=== PATIENT | female | born 1980 | race Native Hawaiian/Other Pacific Islander ===

== ENCOUNTER → 2017-09-07 | Outpatient (CLI) | payer BC, OTHER ==
[~2017-09-07] MED LIST: PANT40TA2 PO; SUCR1ORA4 PO
[2017-09-07 15:44] LABS: BASOPHILS % (AUTO) 0.4 % (0.0-2.0); EOSINOPHILS # (AUTO) 0.1 /CMM (0.0-0.7); HEMATOCRIT 40 % (33-45); HEMOGLOBIN 13.6 g/dL (11.5-14.8); LYMPHOCYTES # (AUTO) 1.9 /CMM (0.8-4.8); LYMPHOCYTES % (AUTO) 17.2 % (20.0-44.0); MEAN CORPUSCULAR HEMOGLOBIN 29 PG (26.0-33.0); MEAN CORPUSCULAR HGB CONC 34 g/dl (31.0-36.0); MEAN CORPUSCULAR VOLUME 85 fL (82-100); MONOCYTES # (AUTO) 0.7 /CMM (0.1-1.30); MONOCYTES % (AUTO) 6.3 % (2.0-12.0); NEUTROPHILS # (AUTO) 8.2 /CMM (1.8-8.9); NEUTROPHILS % (AUTO) 75.1 % (43.0-81.0); PLATELET COUNT (AUTO) 383 /CMM (150-450); RDW COEFFICIENT OF VARIATION 14.3 (11.5-15.0); WHITE BLOOD COUNT (AUTO) 10.9 K/uL (4.3-11.0)
[2017-09-08 08:09] LABS: RUBELLA ANTIBODIES, IGG 7.86 index (Immune >0.99)
== END | disposition home or self-care (01) ==
LOC: LAB 12:19
PROVIDERS: ATTEND Obstetrics & Gynecology
DX: Z33.1 Pregnant state, incidental (principal); N91.0 Primary amenorrhea; Z20.2 Contact with and (suspected) exposure to infections with a predominantly sexual mode of transmission; Q99.2 Fragile X chromosome; E84.0 Cystic fibrosis with pulmonary manifestations
CPT/HCPCS: 36415; 83021; 84443-TC; 85025-TC; 85660; 86592; 86803; 86850-TC; 86900-TC; 87340

== ENCOUNTER 2017-11-16 08:49 | Outpatient (CLI) | payer BC, OTHER ==
[2017-11-16 09:51] LABS: BASOPHILS % (AUTO) 0.3 % (0.0-2.0); EOSINOPHILS % (AUTO) 1.7 % (0.0-6.0); HEMATOCRIT 40 % (33-45); HEMOGLOBIN 13.5 g/dL (11.5-14.8); LYMPHOCYTES # (AUTO) 1.9 /CMM (0.8-4.8); MEAN CORPUSCULAR HGB CONC 34 g/dl (31.0-36.0); MEAN CORPUSCULAR VOLUME 85 fL (82-100); MONOCYTES # (AUTO) 0.6 /CMM (0.1-1.30); MONOCYTES % (AUTO) 6.2 % (2.0-12.0); NEUTROPHILS # (AUTO) 7.7 /CMM (1.8-8.9); NEUTROPHILS % (AUTO) 73.8 % (43.0-81.0); PLATELET COUNT (AUTO) 403 /CMM (150-450); RDW COEFFICIENT OF VARIATION 13.6 (11.5-15.0); RED BLOOD CELL COUNT(AUTO) 4.73 MIL/uL (4.0-5.2); WHITE BLOOD COUNT (AUTO) 10.4 K/uL (4.3-11.0)
== END 2017-11-16 23:59 | disposition home or self-care (01) ==
LOC: LAB 08:49
PROVIDERS: ATTEND Obstetrics & Gynecology
DX: O09.519 Supervision of elderly primigravida, unspecified trimester (principal); O26.899 Other specified pregnancy related conditions, unspecified trimester; N91.0 Primary amenorrhea; Z3A.00 Weeks of gestation of pregnancy not specified
CPT/HCPCS: 36415; 82947-TC; 85025-TC

== ENCOUNTER 2017-11-23 09:23 | Outpatient (CLI) | payer BC, OTHER | END 2017-11-23 23:59 | disposition home or self-care (01) | LOC: LAB 09:23 | PROVIDERS: ATTEND Obstetrics & Gynecology | DX: O09.513 Supervision of elderly primigravida, third trimester (principal); Z3A.00 Weeks of gestation of pregnancy not specified | CPT/HCPCS: 36415; 82947-TC ==

== ENCOUNTER 2018-03-05 10:59 | Outpatient (CLI) | payer BC ==
[2018-03-05 11:47] LABS: BASOPHILS % (AUTO) 0.6 % (0.0-2.0); EOSINOPHILS % (AUTO) 3.2 % (0.0-6.0); HEMATOCRIT 43 % (33-45); HEMOGLOBIN 14.1 g/dL (11.5-14.8); LYMPHOCYTES # (AUTO) 2.4 /CMM (0.8-4.8); LYMPHOCYTES % (AUTO) 29.8 % (20.0-44.0); MEAN CORPUSCULAR HEMOGLOBIN 28 PG (26.0-33.0); MEAN CORPUSCULAR HGB CONC 33 g/dl (31.0-36.0); MEAN CORPUSCULAR VOLUME 87 fL (82-100); MONOCYTES # (AUTO) 0.6 /CMM (0.1-1.30); MONOCYTES % (AUTO) 6.9 % (2.0-12.0); NEUTROPHILS # (AUTO) 4.8 /CMM (1.8-8.9); NEUTROPHILS % (AUTO) 59.5 % (43.0-81.0); PLATELET COUNT (AUTO) 494 /CMM (150-450); RDW COEFFICIENT OF VARIATION 15.1 (11.5-15.0); RED BLOOD CELL COUNT(AUTO) 4.95 MIL/uL (4.0-5.2); WHITE BLOOD COUNT (AUTO) 8.1 K/uL (4.3-11.0)
[2018-03-05 11:49] LABS: APPEARANCE,URINE SL CLOUDY (CLEAR); BILIRUBIN,URINE NEGATIVE (NEGATIVE); BLOOD, URINE NEGATIVE Ery/uL (NEGATIVE); COLOR,URINE YELLOW (YELLOW); KETONES,URINE NEGATIVE (NEGATIVE); LEUKOCYTE ESTERASE ,URINE NEGATIVE (NEGATIVE); NITRITE, URINE NEGATIVE (NEGATIVE); PH,URINE 6.5 (5.0-8.0); PROTEIN,URINE NEGATIVE (NEGATIVE); UGLUCOSE NEGATIVE (NEGATIVE); UROBILINOGEN,URINE 0.2 EU/dL (0.2)
[2018-03-05 12:04] LABS: INR 0.91 (0.87-1.13)
[2018-03-05 14:51] LABS: CALCIUM, SERUM 9.3 mg/dL (8.5-10.1); CREATININE 0.6 mg/dL (0.6-1.3)
== END 2018-03-05 23:59 | disposition home or self-care (01) ==
LOC: LAB 10:59
PROVIDERS: ATTEND Obstetrics & Gynecology
DX: Z30.2 Encounter for sterilization (principal); N91.0 Primary amenorrhea
CPT/HCPCS: 36415; 80048-TC; 81000-TC; 84702-TC; 85025-TC; 85610-TC; 85730-TC; 86900-TC

== ENCOUNTER 2018-07-08 15:37 | Emergency (ER) | payer BC, OTHER ==
[~2018-07-08] VITALS: Ht 157.5 cm; Wt 66.7 kg
[2018-07-08 15:47] VITALS: BP 135/81
[2018-07-08] MEDS ORDERED: ALBUTEROL FS 2.5 MG/3 ML VIAL.NEB NEB ONE (16:30)
[2018-07-08] MEDS ORDERED: IPRATROPIUM NEB FS 0.5 MG/2.5 ML AMPUL.NEB NEB ONE (16:30)
[2018-07-08 17:06] LABS: APPEARANCE,URINE Clear (CLEAR); BILIRUBIN,URINE Negative (NEGATIVE); BLOOD, URINE Negative Ery/uL (NEGATIVE); COLOR,URINE Yellow (YELLOW); KETONES,URINE Trace (NEGATIVE); LEUKOCYTE ESTERASE ,URINE Small (NEGATIVE); NITRITE, URINE Negative (NEGATIVE); PROTEIN,URINE Trace mg/dl (NEGATIVE); UGLUCOSE Negative (NEGATIVE); UROBILINOGEN,URINE 0.2 EU/dL (0.2)
[2018-07-08] MEDS ORDERED: ALBUTEROL FS 2.5 MG/3 ML VIAL.NEB ONE (17:09)
[2018-07-08] MEDS ORDERED: IPRATROPIUM NEB FS 0.5 MG/2.5 ML AMPUL.NEB ONE (17:10)
[2018-07-08 17:16] LABS: SQUAMOUS EPITHELIAL CELL,UR Many /HPF (None Seen)
[2018-07-08 17:17] LABS: BACTERIA,URINE Moderate /HPF (None Seen)
[2018-07-08 17:18] LABS: RBC,URINE 0-2 /HPF (0-2)
== END 2018-07-08 17:46 | disposition home or self-care (01) ==
LOC: ER 15:42
DX: J84.9 Interstitial pulmonary disease, unspecified (principal); J98.01 Acute bronchospasm; E11.65 Type 2 diabetes mellitus with hyperglycemia; R50.9 Fever, unspecified; Z98.51 Tubal ligation status; Z88.0 Allergy status to penicillin; Z79.899 Other long term (current) drug therapy
CPT/HCPCS: 71045-TC; 81000-TC; 82962-TC; 84703-TC; 87086-TC; 87400; A4606; Z7610

== ENCOUNTER 2018-07-14 22:03 | Emergency (ER) | payer BC, OTHER ==
[~2018-07-14] VITALS: Ht 157.5 cm; Wt 63.5 kg
--- NOTE | 2018-07-14 22:41 | NUR ---
TO ER BED 12 BIB SELF C/C OF ALLERGIC RXN. AA/OX4. "I THINK I AM ALLERGIC TO THE ANTIBIOTICS THAT I WAS PRESCRIBED LAST MONDAY." SPEAKING FULL SENTENCES. NO S/S SOB. AMBULATED TO BED WITH STABLE GAIT. MOVES ALL EXTRMITIES WELL. DENIES ANY COMPLAINTS OF TONGUE ITCHINESS/ NUMBNESS. HIVES/ ITCHINESS NOTED THROUGHOUT BODY. NAD. VSS. STABLE CONDITION. WILL CONTINUE TO MONITOR.
[2018-07-14] MEDS ORDERED: diphenhydrAMINE HCL 50 MG/ML VIAL IM ONE (23:00)
[2018-07-14] MEDS ORDERED: DEXAMETHASONE SOD PHOSPHATE 4 MG/ML VIAL IM ONE (23:00)
[2018-07-14] MEDS ORDERED: FAMOTIDINE (20 MG) 20 MG TABLET PO ONE (23:00)
[2018-07-14] MEDS ORDERED: DEXAMETHASONE SOD PHOSPHATE 10 MG/ML VIAL ONE (23:04)
[2018-07-14] MEDS ORDERED: diphenhydrAMINE HCL 50 MG/ML VIAL ONE (23:04)
[2018-07-14] MEDS ORDERED: FAMOTIDINE (20 MG) 20 MG TABLET ONE ×2 (23:05→23:08)
[2018-07-14 23:36] VITALS: BP 108/77
--- NOTE | 2018-07-14 23:36 | NUR ---
Patient is resting comfortably in bed with eyes closed. Easily aroused. VSS. NAD. STABLE CONDITION.
== END 2018-07-15 00:04 | disposition home or self-care (01) ==
LOC: ER 22:15
DX: T36.0X5A Adverse effect of penicillins, initial encounter (principal); T36.3X5A Adverse effect of macrolides, initial encounter; Z88.0 Allergy status to penicillin; Z88.1 Allergy status to other antibiotic agents; Z88.6 Allergy status to analgesic agent; Y92.89 Other specified places as the place of occurrence of the external cause
CPT/HCPCS: A4606; J1100; J1200; Z7610

== ENCOUNTER 2018-07-16 07:47 | Emergency (ER) | payer BC, OTHER ==
[~2018-07-16] VITALS: Ht 157.5 cm; Wt 63.5 kg
[2018-07-16] MEDS ORDERED: diphenhydrAMINE HCL 50 MG/ML VIAL IV ONE (08:00)
[2018-07-16] MEDS ORDERED: predniSONE 10 MG TABLET PO ONE (08:00)
[2018-07-16] MEDS ORDERED: IV NS 0.9% 1,000 ML BAG IV ONE (08:00)
[2018-07-16] MEDS ORDERED: predniSONE 20 MG TABLET ONE (08:04)
[2018-07-16] MEDS ORDERED: diphenhydrAMINE HCL 50 MG/ML VIAL ONE (08:05)
[2018-07-16 08:12] LABS: BASOPHILS % (AUTO) 0.2 % (0.0-2.0); EOSINOPHILS % (AUTO) 3.8 % (0.0-6.0); HEMATOCRIT 43 % (33-45); HEMOGLOBIN 14.3 g/dL (11.5-14.8); LYMPHOCYTES # (AUTO) 1.6 /CMM (0.8-4.8); LYMPHOCYTES % (AUTO) 8.3 % (20.0-44.0); MEAN CORPUSCULAR HGB CONC 33 g/dl (31.0-36.0); MEAN CORPUSCULAR VOLUME 85 fL (82-100); MONOCYTES # (AUTO) 1.3 /CMM (0.1-1.30); MONOCYTES % (AUTO) 6.8 % (2.0-12.0); NEUTROPHILS # (AUTO) 15.2 /CMM (1.8-8.9); NEUTROPHILS % (AUTO) 80.9 % (43.0-81.0); PLATELET COUNT (AUTO) 623 /CMM (150-450); RED BLOOD CELL COUNT(AUTO) 5.09 MIL/uL (4.0-5.2); WHITE BLOOD COUNT (AUTO) 18.8 K/uL (4.3-11.0)
[2018-07-16 08:21] LABS: CALCIUM, SERUM 9.2 mg/dL (8.5-10.1); CARBON DIOXIDE 23 mmol/L (21-32); CHLORIDE 105 mmol/L (98-107); CREATININE 0.7 mg/dL (0.6-1.3); GLUCOSE 108 mg/dL (74-106); POTASSIUM 3.5 mmol/L (3.5-5.1); SODIUM SERUM 141 mmol/L (136-145); UREA NITROGEN, BLOOD 11 mg/dL (7-18)
--- NOTE | 2018-07-16 08:23 | NUR ---
pt bib self c/o rash x 6 days getting worst - denies SOB was prescribed Augmentin for PNA x 7 days. alert and oriented x 4, verbally responsive and able to make needs known. on room air, breathing evenly and unlabored, denies any pain at this time. hooked on the monitor. kept comfortable, will continue to monitor accordingly.
--- NOTE | 2018-07-16 08:24 | NUR ---
[employer] technical lead senior developer at bedside for x-ray.
[2018-07-16 08:26] LABS: ALANINE AMINOTRANSFERASE 37 U/L (12-78); ALKALINE PHOSPHATASE 95 U/L (46-116); ASPARTATE AMINOTRANSFERASE 16 U/L (15-37); BILIRUBIN,DIRECT 0.1 mg/dL (0.0-0.2); BILIRUBIN,TOTAL 0.5 mg/dL (0.2-1.0); TOTAL PROTEIN, SERUM 8.3 g/dL (6.4-8.2)
[2018-07-16] MEDS ORDERED: CALAMINE 118 ML BOTTLE TP SCH (09:30)
[2018-07-16 09:51] VITALS: BP 124/74
--- NOTE | 2018-07-16 09:53 | NUR ---
Patient discharged to home in stable condition. Written and verbal after care instructions given. Patient verbalizes understanding of instruction.IV removed. Catheter intact and site benign. Pressure and 4x4 applied to site. No bleeding noted.
== END 2018-07-16 09:53 | disposition home or self-care (01) ==
LOC: ER 07:50
DX: T36.0X5A Adverse effect of penicillins, initial encounter (principal); E86.0 Dehydration; Z87.01 Personal history of pneumonia (recurrent); Z88.0 Allergy status to penicillin; Z88.1 Allergy status to other antibiotic agents; Z88.8 Allergy status to other drugs, medicaments and biological substances; Z88.6 Allergy status to analgesic agent; Y92.89 Other specified places as the place of occurrence of the external cause
CPT/HCPCS: 36415; 71045-TC; 80048-TC; 80076-TC; 84484-TC; 85025-TC; A4606; J1200; J7030; Z7610

== ENCOUNTER 2018-07-16 22:51 | Emergency (ER) | END 2018-07-17 04:20 | disposition home or self-care (01) | DX: L50.9 Urticaria, unspecified (principal); Z88.0 Allergy status to penicillin; Z88.1 Allergy status to other antibiotic agents; Z88.6 Allergy status to analgesic agent ==

== ENCOUNTER 2018-10-12 10:00 | Outpatient (CLI) | payer BC, OTHER ==
[2018-10-12 10:57] LABS: BASOPHILS % (AUTO) 0.7 % (0.0-2.0); EOSINOPHILS % (AUTO) 2.2 % (0.0-6.0); HEMATOCRIT 43 % (33-45); HEMOGLOBIN 14.6 g/dL (11.5-14.8); LYMPHOCYTES # (AUTO) 1.9 /CMM (0.8-4.8); LYMPHOCYTES % (AUTO) 28.2 % (20.0-44.0); MEAN CORPUSCULAR HGB CONC 34 g/dl (31.0-36.0); MEAN CORPUSCULAR VOLUME 85 fL (82-100); MONOCYTES # (AUTO) 0.5 /CMM (0.1-1.30); MONOCYTES % (AUTO) 6.7 % (2.0-12.0); NEUTROPHILS # (AUTO) 4.3 /CMM (1.8-8.9); NEUTROPHILS % (AUTO) 62.2 % (43.0-81.0); PLATELET COUNT (AUTO) 421 /CMM (150-450); RED BLOOD CELL COUNT(AUTO) 5.06 MIL/uL (4.0-5.2); WHITE BLOOD COUNT (AUTO) 6.9 K/uL (4.3-11.0)
[2018-10-12 11:23] LABS: ALBUMIN 4.3 g/dL (3.4-5.0); BILIRUBIN,TOTAL 0.7 mg/dL (0.2-1.0); CALCIUM, SERUM 8.8 mg/dL (8.5-10.1); CREATININE 0.8 mg/dL (0.6-1.3); POTASSIUM 3.9 mmol/L (3.5-5.1)
[2018-10-12 11:29] LABS: THYROID STIMULATING HORMONE 0.158 uIU/mL (0.358-3.74); URIC ACID 4.5 mg/dL (2.6-7.2)
[2018-10-12 11:50] LABS: APPEARANCE,URINE CLEAR (CLEAR); BILIRUBIN,URINE NEGATIVE (NEGATIVE); BLOOD, URINE NEGATIVE Ery/uL (NEGATIVE); COLOR,URINE YELLOW (YELLOW); KETONES,URINE NEGATIVE (NEGATIVE); LEUKOCYTE ESTERASE ,URINE NEGATIVE (NEGATIVE); NITRITE, URINE NEGATIVE (NEGATIVE); PH,URINE 5.5 (5.0-8.0); PROTEIN,URINE NEGATIVE (NEGATIVE); UGLUCOSE NEGATIVE (NEGATIVE); UROBILINOGEN,URINE 0.2 EU/dL (0.2)
[2018-10-13 12:09] LABS: *FOLIC ACID 17.4 ng/mL (>3.0)
== END 2018-10-12 23:59 | disposition home or self-care (01) ==
LOC: LAB 10:00
PROVIDERS: ATTEND Legal Medicine
DX: Z00.00 Encounter for general adult medical examination without abnormal findings (principal)
CPT/HCPCS: 36415; 80053-TC; 80061-TC; 81000-TC; 82306; 82728-TC; 83540-TC; 84439-TC; 84443-TC; 84550-TC; 85025-TC

== ENCOUNTER 2020-02-07 08:02 | Outpatient (CLI) | payer BC, OTHER ==
[2020-02-07 09:07] LABS: BASOPHILS # (AUTO) 0.1 /CMM (0.0-0.2); BASOPHILS % (AUTO) 0.6 % (0.0-2.0); EOSINOPHILS % (AUTO) 2.1 % (0.0-6.0); HEMATOCRIT 42 % (33-45); LYMPHOCYTES # (AUTO) 2.4 /CMM (0.8-4.8); MEAN CORPUSCULAR HGB CONC 33 g/dl (31.0-36.0); MEAN CORPUSCULAR VOLUME 86 fL (82-100); MONOCYTES # (AUTO) 0.6 /CMM (0.1-1.30); MONOCYTES % (AUTO) 5.5 % (2.0-12.0); NEUTROPHILS # (AUTO) 7.7 /CMM (1.8-8.9); NEUTROPHILS % (AUTO) 69.8 % (43.0-81.0); PLATELET COUNT (AUTO) 465 /CMM (150-450); RED BLOOD CELL COUNT(AUTO) 4.94 MIL/uL (4.0-5.2); WHITE BLOOD COUNT (AUTO) 11.1 K/uL (4.3-11.0)
[2020-02-07 09:09] LABS: ALBUMIN 4.6 g/dL (3.4-5.0); BILIRUBIN,TOTAL 0.2 mg/dL (0.2-1.0); CALCIUM, SERUM 8.7 mg/dL (8.5-10.1); CREATININE 0.8 mg/dL (0.6-1.3); POTASSIUM 3.2 mmol/L (3.5-5.1); TOTAL PROTEIN, SERUM 8.8 g/dL (6.4-8.2)
[2020-02-07 09:10] LABS: APPEARANCE,URINE CLEAR (CLEAR); BILIRUBIN,URINE NEGATIVE (NEGATIVE); BLOOD, URINE NEGATIVE Ery/uL (NEGATIVE); KETONES,URINE NEGATIVE (NEGATIVE); LEUKOCYTE ESTERASE ,URINE TRACE (NEGATIVE); NITRITE, URINE NEGATIVE (NEGATIVE); PH,URINE 6.5 (5.0-8.0); PROTEIN,URINE NEGATIVE (NEGATIVE); UGLUCOSE NEGATIVE (NEGATIVE); UROBILINOGEN,URINE 0.2 EU/dL (0.2)
[2020-02-07 09:16] LABS: COLOR,URINE STRAW (YELLOW)
[2020-02-07 09:18] LABS: THYROID STIMULATING HORMONE 0.112 uIU/mL (0.358-3.74)
[2020-02-07 09:59] LABS: BACTERIA,URINE Few /HPF (None Seen); RBC,URINE 0-2 /HPF (0-2); SQUAMOUS EPITHELIAL CELL,UR Rare /HPF (None Seen)
[2020-02-08 11:22] LABS: FOLIC ACID 13.7 ng/mL (>3.0); THYROID PEROXIDASE (TPO) AB <9 IU/mL (0-34)
== END 2020-02-07 23:59 | disposition home or self-care (01) ==
LOC: LAB 08:02
PROVIDERS: ATTEND Legal Medicine
DX: Z00.00 Encounter for general adult medical examination without abnormal findings (principal); E11.9 Type 2 diabetes mellitus without complications; I10 Essential (primary) hypertension; K21.9 Gastro-esophageal reflux disease without esophagitis; R10.9 Unspecified abdominal pain; E03.9 Hypothyroidism, unspecified; D64.9 Anemia, unspecified; E55.9 Vitamin D deficiency, unspecified
CPT/HCPCS: 80053-TC; 81000-TC; 82150-TC; 82306; 82785; 83690-TC; 84439-TC; 84443-TC; 85025-TC; 86003; 86376; 87086-TC

== ENCOUNTER 2020-02-18 11:00 | Outpatient (CLI) | payer BC, OTHER | END 2020-02-18 23:59 | disposition home or self-care (01) | LOC: US 11:00 | PROVIDERS: ATTEND Legal Medicine | DX: E04.1 Nontoxic single thyroid nodule (principal); E05.00 Thyrotoxicosis with diffuse goiter without thyrotoxic crisis or storm | CPT/HCPCS: 76536-TC ==

== ENCOUNTER 2020-05-02 02:59 | Inpatient (IN) | payer BC, OTHER ==
[~2020-05-02] VITALS: Ht 157.5 cm; Wt 65.3 kg
--- NOTE | 2020-05-02 03:10 | NUR ---
PT CAME TO THE ER C/O MIDEPIGASTRIC PAIN SINCE 0200 W/ N/V. PT AAOX4, VSS, RESPIRATIONS EVEN AND UNLABORED ON RA W/ NAD NOTED. PT CONNECTED TO THE MONITOR AND POX.
[2020-05-02] MEDS ORDERED: MORPHINE SULFATE INJ 4 MG/ML DISP.SYRIN ONE (03:15)
[2020-05-02] MEDS ORDERED: ONDANSETRON HCL/PF 4 MG/2 ML VIAL ONE (03:15)
--- NOTE | 2020-05-02 03:15 | NUR ---
BLOOD COLLECTED AND SENT TO LAB
[2020-05-02] MEDS ORDERED: IV NS 0.9% 1,000 ML BAG IV ONE (03:30)
[2020-05-02] MEDS ORDERED: ONDANSETRON HCL/PF 4 MG/2 ML VIAL IVP ONE (03:30)
[2020-05-02] MEDS ORDERED: MORPHINE SULFATE INJ 2 MG/ML DISP.SYRIN IV ONE (03:30)
--- NOTE | 2020-05-02 03:37 | NUR ---
PT TAKEN TO RADIOLOGY FOR CT
--- NOTE | 2020-05-02 03:45 | NUR ---
PT BACK FROM RADIOLOGY
[2020-05-02 03:49] LABS: BASOPHILS # (AUTO) 0.2 /CMM (0.0-0.2); BASOPHILS % (AUTO) 1.8 % (0.0-2.0); EOSINOPHILS % (AUTO) 2.6 % (0.0-6.0); HEMATOCRIT 42 % (33-45); HEMOGLOBIN 13.8 g/dL (11.5-14.8); LYMPHOCYTES % (AUTO) 19.7 % (20.0-44.0); MEAN CORPUSCULAR HGB CONC 33 g/dl (31.0-36.0); MEAN CORPUSCULAR VOLUME 84 fL (82-100); MONOCYTES # (AUTO) 0.4 /CMM (0.1-1.30); MONOCYTES % (AUTO) 4.2 % (2.0-12.0); NEUTROPHILS # (AUTO) 7.3 /CMM (1.8-8.9); NEUTROPHILS % (AUTO) 71.7 % (43.0-81.0); PLATELET COUNT (AUTO) 397 /CMM (150-450); RED BLOOD CELL COUNT(AUTO) 4.98 MIL/uL (4.0-5.2); WHITE BLOOD COUNT (AUTO) 10.2 K/uL (4.3-11.0)
[2020-05-02] MEDS ORDERED: HYDROMORPHONE 1 MG/1 ML DISP.SYRIN ONE ×2 (03:49→08:41)
[2020-05-02 03:56] LABS: CALCIUM, SERUM 8.6 mg/dL (8.5-10.1); CARBON DIOXIDE 22 mmol/L (21-32); CHLORIDE 101 mmol/L (98-107); CREATININE 0.8 mg/dL (0.6-1.3); GLUCOSE 144 mg/dL (74-106); SODIUM SERUM 136 mmol/L (136-145); UREA NITROGEN, BLOOD 13 mg/dL (7-18)
[2020-05-02] MEDS ORDERED: HYDROMORPHONE 1 MG/1 ML DISP.SYRIN IV ONE (04:00)
[2020-05-02 04:02] LABS: ALANINE AMINOTRANSFERASE 55 U/L (12-78); ALBUMIN 3.9 g/dL (3.4-5.0); ALKALINE PHOSPHATASE 115 U/L (46-116); ASPARTATE AMINOTRANSFERASE 21 U/L (15-37); BILIRUBIN,DIRECT 0.1 mg/dL (0.0-0.2); BILIRUBIN,TOTAL 0.3 mg/dL (0.2-1.0); LIPASE 137 U/L (73-393)
[2020-05-02] MEDS ORDERED: ONDANSETRON 4 MG TAB.RAPDIS ONE (04:40)
[2020-05-02] MEDS ORDERED: ONDANSETRON 4 MG TAB.RAPDIS SL ONE (05:00)
--- NOTE | 2020-05-02 05:01 | NUR ---
VIOLETA WAYNE TALKING TO RADIOLOGIST REGARDING CT RESULT.
--- NOTE | 2020-05-02 05:10 | NUR ---
COVID SWAB SENT TO LAB
[2020-05-02] MEDS ORDERED: METH10TA80 PO (05:42)
[2020-05-02] MEDS ORDERED: ASCO60LO9 PO (05:43)
[2020-05-02] MEDS ORDERED: ZINC10LO5 PO (05:44)
--- NOTE | 2020-05-02 05:49 | NUR ---
LAB CALLED REGARDING NEGATIVE COVID RESULT.
--- NOTE | 2020-05-02 06:45 | NUR ---
CALLED DR HOLT PER VOICE RECORDING ADMIT PT TO [facility].
[2020-05-02] MEDS ORDERED: LEVOFLOXACIN 750 MG /D5W 150ML PIGGYBACK IV ONE (07:00)
[2020-05-02] MEDS ORDERED: LEVOFLOXACIN 750 MG /D5W 150ML 150 ML IV ONE (07:00)
--- NOTE | 2020-05-02 07:25 | NUR ---
REPORT GIVEN TO NANCY OROSCO FOR WILL[facility]
--- NOTE | 2020-05-02 07:43 | NUR ---
CALLED [facility]
--- NOTE | 2020-05-02 07:56 | NUR ---
pt resting vss pending transfer to floor
--- NOTE | 2020-05-02 08:09 | NUR ---
[facility] PANEL PAGED X2 -AMARI ALVAREZ
[2020-05-02] MEDS ORDERED: diphenhydrAMINE HCL 50 MG/ML VIAL ONE (08:19)
--- NOTE | 2020-05-02 08:26 | NUR ---
pt having rxn from [facility]; dr. jimenez, aware, benadryl 25mg ivp
--- NOTE | 2020-05-02 08:28 | NUR ---
PT BECOME ITCHY POST LEQAQUIN BENADRYL 25 MG IVP GIVEN .
[2020-05-02] MEDS ORDERED: diphenhydrAMINE HCL 50 MG/ML VIAL IV ONE (08:30)
[2020-05-02] MEDS ORDERED: HYDROMORPHONE 1 MG/1 ML DISP.SYRIN IV STA (08:39)
--- NOTE | 2020-05-02 08:46 | NUR ---
PT STATED FEELING LESS ITCHY C/O PAIN GIVEN DILAUDID 1 MG IVP PER MD ORDER VSS TRANSFER TO FLOOR STABLE
[2020-05-02 09:00] VITALS: BP 139/77
--- NOTE | 2020-05-02 09:11 | NUR ---
MS/biomedical manager New admission from ER with diagnosis of abdominal pain. Patient fully admitted, awaiting orders from Dr Hooks. Oriented to new surroundings, call light within reach, bed in low setting. Will continue to monitor and ensure safety.
[2020-05-02 09:16] LABS: APPEARANCE,URINE CLEAR (CLEAR); BILIRUBIN,URINE NEGATIVE (NEGATIVE); BLOOD, URINE NEGATIVE Ery/uL (NEGATIVE); COLOR,URINE YELLOW (YELLOW); KETONES,URINE 15 (NEGATIVE); LEUKOCYTE ESTERASE ,URINE NEGATIVE (NEGATIVE); NITRITE, URINE NEGATIVE (NEGATIVE); PROTEIN,URINE NEGATIVE (NEGATIVE); UGLUCOSE NEGATIVE (NEGATIVE); UROBILINOGEN,URINE 0.2 EU/dL (0.2)
[2020-05-02 09:24] LABS: BACTERIA,URINE None seen /HPF (None Seen); RBC,URINE NONE SEEN /HPF (0-2); SQUAMOUS EPITHELIAL CELL,UR Rare /HPF (None Seen)
[2020-05-02 09:25] LABS: WBC,URINE 0-2 /HPF (0-3)
[2020-05-02 09:33] VITALS: BP 134/77
[2020-05-02] MEDS ORDERED: MORPHINE SULFATE INJ 2 MG/ML DISP.SYRIN IV PRN (12:30)
[2020-05-02] MEDS ORDERED: ZOLPIDEM TARTRATE 5 MG TABLET PO PRN (12:30)
[2020-05-02] MEDS ORDERED: ACETAMINOPHEN 325 MG TABLET PO PRN (12:30)
[2020-05-02] MEDS ORDERED: Z GUARD REMEDY 2 OZ OINT TP PRN (12:30)
[2020-05-02] MEDS: IV D5/0.45 NACL 1,000 ML IV PRN (13:31)
[2020-05-02] MEDS ORDERED: PIPERACILLIN /TAZOBACTAM 3.375 G in IV D5W 50 ML IV ONE (14:00)
--- NOTE | 2020-05-02 14:29 | NUR ---
MS/RN HUSSEINA Patient take to nuclear medicine for HIDA scan, consent form signed and placed in front of chart.
[2020-05-02] MEDS: POTASSIUM CL. PREMIX PERIPHER. 50 ML IV SCH ×4 (14:38→17:31)
[2020-05-02] MEDS: METRONIDAZOLE 500MG/ NS 100ML 500 MG in PREMIX 1 EA IV SCH ×2 (15:42→22:20)
[2020-05-02 16:00] VITALS: BP 123/64
[2020-05-02 16:04] VITALS: BP 123/64
--- NOTE | 2020-05-02 16:43 | NUR ---
NM: HIDA SCAN WAS COMPLETED. TECH:RB
--- NOTE | 2020-05-02 18:48 | NUR ---
MS/RN End note Patient remains in stable condition, all medications administered as ordered. Started with clear liquid diet, tolerating well, no nausea or vomiting. Tylenol 650mg given for headache at 1740. HIDA scan resulted as non visualization of gallbladder, suspicious for an obstruction of the cystic duct. Awaitng surgical consult with Dr Santoyo. All questions and concerns addressed, will endorse to manufacturing supervisor 2nd shift.
[2020-05-02] MEDS ORDERED: PIPERACILLIN /TAZOBACTAM 3.375 G in IV D5W 100 ML IV SCH (20:00)
[2020-05-02 21:25] VITALS: BP 140/77
--- NOTE | 2020-05-02 22:00 | NUR ---
wire harness assembler: received from day rn. pt a/o x4, on ra respirations even and unlabored. pt denies any abdl pain or discomfort at this time. ps 0/10. pt on full liquid diet, tolerating well, no episode of n/v after eating. pt has multiple allergies, stated she had generalized rashes after receiving levaquin this am in er, benadryl inj one time dose administered in er per documentation. this included in allergy list so md can reconsider the order/pharmacist put this order as pending. discussed plan of care to pt, pt agree and understand. awaiting for consult/surgery/.dr rory chamberlain. pt has iv access on left ac g 20 patent and flushing well, infusing with d5 1/2 ns at 75ml/hr. jello and chocolate pudding provided per pt request. toiletries provided. vs taken and recorded at 2115. safety precautions for fall initiated, call light in reach, will continue monitoring pt.
--- NOTE | 2020-05-02 22:57 | NUR ---
rn notes/surgery consult: surgeon dr rory chamberlain currently in the unit. went to see the pt. did h&p, pmhx. md performed assessment. noted pain upon palpation and putting pressure on mid epigastric area and rlq. per md the result of hida scan is abnormal, could be there is a stone blocking the cbd, or the pain medication pt received stop the duct from squeezing that's why pt has no pain since afternoon. per md, given pt's experienced s/s, he recommends laparoscopic cholecystectomy, and a general anesthesia will be used. md discussed risk and benefits of surgery. all questions of pt were answered by md. md recommendation of low fat diet post surgery. pt agree and understand. pt will speak with her partner regarding final decision for undergoing surgery.
--- NOTE | 2020-05-02 23:26 | NUR ---
rn notes/levaquin iv atb: dr riojas currently in the unit, relayed about pt's allergy to levaquin, made aware pt received levaquin tthis am in er and had generalized rashes where she needed to be given a benadryl. informed pt has allergy to multiple antibiotics, per md verbal order to discontinue levaquin, keep pt on flagyl. order read back, verified and carried out.
[2020-05-03] MEDS: IV D5/0.45 NACL 1,000 ML IV PRN ×2 (03:25→21:58)
[2020-05-03] MEDS: METRONIDAZOLE 500MG/ NS 100ML 500 MG in PREMIX 1 EA IV SCH ×3 (05:24→21:05)
--- NOTE | 2020-05-03 06:30 | NUR ---
prn morphine: prn morphine 2mg ivp administered for pt's c/o 7/10 mid epigastric pain radiating to rlq and right flank area, pt prefers morphine. will continue to monitor and reassess pt.
[2020-05-03] MEDS ORDERED: LEVOFLOXACIN 500 MG /D5W 100ML 500 MG in PREMIX 1 EA IV SCH (07:00)
--- NOTE | 2020-05-03 07:05 | NUR ---
End of shift report: no episode of n/v noted. Iv access remains patent and flushing well, infusing with d5 ns at 75ml/hr. iv atb administered as scheduled. Awaiting pts decision regarding surgery on Monday. Vs remains stable, needs attended. Safety precautions for fall remains engaged, call light in reach, will endorse to day rn for enmanuel.
--- NOTE | 2020-05-03 07:30 | NUR ---
MS/RN Opening note Patient received from welder 2nd shift. A/O X4, vital signs stable, no fevers noted. Pain scale currently 5/10, pain medication administered by previous shift. No nausea or vomiting at this time. Aware of current plan for surgery tomorrow with Dr Santoyo for laparoscopic cholecystectomy and the need to be NPO from midnight. IV fluids infusing at 75ml/hr via left AC 22G , no signs of infiltration seen. All questions and concerns addressed, call light within reach, will continue to monitor and ensure safety.
[2020-05-03 08:00] VITALS: BP 145/84
[2020-05-03 08:18] LABS: BASOPHILS % (AUTO) 0.4 % (0.0-2.0); EOSINOPHILS % (AUTO) 1.1 % (0.0-6.0); HEMATOCRIT 42 % (33-45); HEMOGLOBIN 13.8 g/dL (11.5-14.8); LYMPHOCYTES # (AUTO) 2.1 /CMM (0.8-4.8); LYMPHOCYTES % (AUTO) 19.5 % (20.0-44.0); MEAN CORPUSCULAR HGB CONC 33 g/dl (31.0-36.0); MEAN CORPUSCULAR VOLUME 85 fL (82-100); MONOCYTES # (AUTO) 0.9 /CMM (0.1-1.30); MONOCYTES % (AUTO) 8.3 % (2.0-12.0); NEUTROPHILS # (AUTO) 7.5 /CMM (1.8-8.9); NEUTROPHILS % (AUTO) 70.7 % (43.0-81.0); PLATELET COUNT (AUTO) 377 /CMM (150-450); RED BLOOD CELL COUNT(AUTO) 4.92 MIL/uL (4.0-5.2); WHITE BLOOD COUNT (AUTO) 10.6 K/uL (4.3-11.0)
[2020-05-03] MEDS: PANTOPRAZOLE 40 MG TABLET.DR PO SCH (08:23)
[2020-05-03] MEDS: METHIMAZOLE (5MG) 5 MG TABLET PO SCH (08:23)
--- NOTE | 2020-05-03 09:25 | NUR ---
MS/RN Levaquin Levaquin discontinued as patient had previous reaction when administered in emergency room.
[2020-05-03 09:41] LABS: ALBUMIN 3.6 g/dL (3.4-5.0); BILIRUBIN,TOTAL 0.6 mg/dL (0.2-1.0); CALCIUM, SERUM 8.6 mg/dL (8.5-10.1); CREATININE 0.6 mg/dL (0.6-1.3); PHOSPHORUS 3.1 mg/dL (2.5-4.9); POTASSIUM 3.4 mmol/L (3.5-5.1); TOTAL PROTEIN, SERUM 7.6 g/dL (6.4-8.2)
[2020-05-03] MEDS: HYDROMORPHONE 1 MG/1 ML DISP.SYRIN IV PRN ×4 (10:17→22:54)
--- NOTE | 2020-05-03 10:24 | NUR ---
MS/RN PAIN PATIENT COMPLAINING OF PAIN IN LOWER ABDOMEN, 01/30. DR. VERA CALLED FOR NEW ORDERS CURRENT ORDER OF MORPHINE IS NOT WORKING. DILAUDID 0.5 MG Q3HRS NEEDED ORDERED, FIRST DOSE ADMINISTERED NOW. WILL MONITOR FOR EFFECTIVENESS.
[2020-05-03] MEDS: ONDANSETRON HCL/PF 4 MG/2 ML VIAL IVP PRN ×2 (11:18→21:05)
[2020-05-03 16:00] VITALS: BP 132/71
[2020-05-03] MEDS: METOCLOPRAMIDE HCL 10 MG/2 ML VIAL IV PRN (16:08)
--- NOTE | 2020-05-03 18:29 | NUR ---
MS/RN CLOSING NOTE PATIENT IN STABLE CONDITION. VS WITHIN NORMAL RANGE FOR PATIENT. REGLAN AND DILUADID APPEARS TO BE WORKING FOR SYMPTOM MANAGEMENT. AWAITING ORDERS FROM DR. VELAZQUEZ FOR CONSENT. WILL ENDORSE TO LODGE OFFICER.
--- NOTE | 2020-05-03 19:10 | NUR ---
rn disease management: received report from day rn. a/o x4, on ra, pt c/o 7-03/02 mid epig pain radiating to rlq and right flank area. pt stated she wasnt able to eat much today because she feels nauseated. iv access patent and flushign well, connected back to d5 1/2 ns at 75ml/hr. pt had shower today. discussed plan of care. npo p mn for lap magda in am. awaiting orders. safety precautions for fall initiated, call light in reach, will continue monitoring pt.
[2020-05-03 19:36] VITALS: BP 140/79
--- NOTE | 2020-05-03 19:52 | NUR ---
PRN DILAUDID: PT C/O 03/02 MID EPIGASTRIC PAIN RADIATING TO RLQ AND RIGHT FLANK AREA, REQUESTING FOR DILAUDID. PRN DILAUDID 0.5 MG IVP ADMINISTERED TO PT AT THIS TIME.
[2020-05-03 20:00] VITALS: BP 140/79
--- NOTE | 2020-05-03 21:06 | NUR ---
PRN ZOFRAN: PT C/O NAUSEA, PRN ZOFRAN 4MG IVP ADMINISTERED TO PT AT THIS TIME. WILL CONTINUE TO MONITOR AND REASSESS PT.
--- NOTE | 2020-05-03 23:00 | NUR ---
prn dilaudid: pt c/o 04/02 excruciating pain pt is moaning restless because of pain, prn dilaudid 0.5 mg ivp administered to pt at this time.
[2020-05-04] MEDS: METOCLOPRAMIDE HCL 10 MG/2 ML VIAL IV PRN (00:46)
--- NOTE | 2020-05-04 00:50 | NUR ---
prn reglan: pt vomited 250ml of liquids, prn reglan 5mg administered at this time. also pt still c/o pain stated its 05/02 pt restless in bed, guarding, moaning. will notify
[2020-05-04 01:15] VITALS: BP 133/71
[2020-05-04] MEDS ORDERED: KETOROLAC TROMETHAMINE INJ 30 MG/ML VIAL IM STA (01:24)
--- NOTE | 2020-05-04 01:27 | NUR ---
rn notes/verification of allergy to ibuprofen: paged dr riojas covering md for dr cameron, informed pt still in so much pain despite being on iv dilaudid q3hrs, and still vomiting despite being on zofran and reglan. per [facility] hospitalist, stated "i am a medical doctor, discuss the issue with [facility] surgeon, seems abnormal with cholecystitis". contacted dr nu curry, spoked with md, relayed situation, per md telephone order received to give toradol 30 mg ivp x 1 dose now, then give toradol 15mg ivp q6hrs prn for pain, add cmp, amylase and lipase to am labs, keep pt on npo. as rn placing the order for toradol, it flagged about the allergy for ibuprofen. spoked with phramacist litigation associate tsering , stated toradol are part of same nsaid family. spoked with pt, to verify allergy with ibuprofen. accdg to pt, she is not really allergic to ibuprofen. however she added the ibuprofen as part of her allergy because sometime before she's been taking ibuprofen and when they check her lab works, her amylase and lipase were skyrocket, and she believed its because of [facility] ibuprofen shes been taking. asked the pt if she ever received toradol [facility], and pt claim,ed yes, and nothing or no reaction happened to her. relayed all this to pharmacy litigation associate, and accdg to pharmacy erin and toshia, fatmata go ahead and override the order as pt isnt really allergic to ibuprofen. tube turnerrachael patton aware Addendum: 05/04/20 at 0139 by PRAVEEN COX RN correction of entry: pharmacist name is erin and the other one is inocencio
[2020-05-04] MEDS ORDERED: KETOROLAC TROMETHAMINE INJ 30 MG/ML VIAL IV STA (01:36)
--- NOTE | 2020-05-04 01:41 | NUR ---
rn notes/toradol: one time dose of toradol 30 mg ivp administered for c/o 10/10 rlq mid epig pain and right flank pain
[2020-05-04 05:02] LABS: BASOPHILS # (AUTO) 0.1 /CMM (0.0-0.2); BASOPHILS % (AUTO) 0.4 % (0.0-2.0); EOSINOPHILS % (AUTO) 0.1 % (0.0-6.0); HEMATOCRIT 40 % (33-45); HEMOGLOBIN 13.6 g/dL (11.5-14.8); LYMPHOCYTES # (AUTO) 1.7 /CMM (0.8-4.8); LYMPHOCYTES % (AUTO) 12.5 % (20.0-44.0); MEAN CORPUSCULAR HGB CONC 34 g/dl (31.0-36.0); MEAN CORPUSCULAR VOLUME 84 fL (82-100); MONOCYTES # (AUTO) 0.9 /CMM (0.1-1.30); MONOCYTES % (AUTO) 6.5 % (2.0-12.0); NEUTROPHILS # (AUTO) 10.7 /CMM (1.8-8.9); NEUTROPHILS % (AUTO) 80.5 % (43.0-81.0); PLATELET COUNT (AUTO) 394 /CMM (150-450); WHITE BLOOD COUNT (AUTO) 13.2 K/uL (4.3-11.0)
[2020-05-04] MEDS: METRONIDAZOLE 500MG/ NS 100ML 500 MG in PREMIX 1 EA IV SCH ×2 (05:17→14:58)
--- NOTE | 2020-05-04 05:28 | NUR ---
rn notes: pt stated her pain improved so much,now 0/10 after receiving toradol inj. am labs drawn, ekg done. pt requested to sleep for now, will have shower after breakfast, and will sign consent after breakfast.
[2020-05-04 05:35] LABS: ALBUMIN 3.5 g/dL (3.4-5.0); BILIRUBIN,DIRECT 0.2 mg/dL (0.0-0.2); BILIRUBIN,TOTAL 0.6 mg/dL (0.2-1.0); CALCIUM, SERUM 8.6 mg/dL (8.5-10.1); CREATININE 0.6 mg/dL (0.6-1.3); MAGNESIUM 2.2 mg/dL (1.8-2.4); PHOSPHORUS 3.6 mg/dL (2.5-4.9); POTASSIUM 3.7 mmol/L (3.5-5.1); TOTAL PROTEIN, SERUM 7.7 g/dL (6.4-8.2)
--- NOTE | 2020-05-04 06:19 | NUR ---
rn notes: received call from soc, from lab, stated pt has positive antibody (type and screen) and they need to run more test to determine what type of antibody, he claimed this will take later this afternoon for result to come back. informed that this order is only for pre-op protocol, but there is no order for transfusion as of this moment. per soc to just inform md or surgeon. morning news anchor made aware
--- NOTE | 2020-05-04 06:47 | NUR ---
End of shift report: Pt pain improved after toradol ivp. No adverse reaction noted after administering the medication. Pt a/o x4, on ra. Npo, for surgery today. However, supervisor cutting and sewing room were asked multiple times about schedule of surgery, per rn sup, nothing on the list for dr chamberlain, however theres only few cases today so they always add on surgery anytime. Pre-op am labs ordered per protocol. Awaiting for md to place the exact/specific order for the name of procedure to be done (if its just lap magda, or lap magda possible open?etc.,). Iv access remains patent and flushing well, infusing with d5 ns at 75ml/hr. safety precautions for fall remains engaged, call light in reach, will endorse to day rn for enmanuel.
[2020-05-04] MEDS: PANTOPRAZOLE 40 MG TABLET.DR PO SCH (07:42)
[2020-05-04] MEDS: KETOROLAC TROMETHAMINE INJ 30 MG/ML VIAL IV PRN (07:43)
[2020-05-04] MEDS: ONDANSETRON HCL/PF 4 MG/2 ML VIAL IVP PRN ×2 (07:50→18:09)
--- NOTE | 2020-05-04 07:50 | NUR ---
RN NOTES ADMINISTERED TORADOL 15 MG/ML IV PUSH FOR RIGHT FLANK PAIN 10/10 PER PAIN SCALE, AND ZOFRAN 4 MG/ML IV PUSH FOR NAUSEA, ALSO ADMINISTERED SCHEDULED MEDICATION. V/S TAKEN BP- 153/83, P-80.
[2020-05-04 08:00] VITALS: BP_SYST 153; BP_DIAS 83; BP_DIAS 86
[2020-05-04] MEDS: METHIMAZOLE (5MG) 5 MG TABLET PO SCH (09:00)
--- NOTE | 2020-05-04 09:13 | NUR ---
rn notes patient npo per surgeon Natanael scheduled surgery 1130 laparoscopic cholecystectomy possible open, patient stable medication were administered for pain, and nausea effective, continued monitoring.
--- NOTE | 2020-05-04 11:40 | NUR ---
RN NOTES PATIENT PAN DUMPER FOR SURGERY AT THIS TIME, STABLE, REFUSED PAIN, V/S WNL.
[2020-05-04] MEDS ORDERED: MIDAZOLAM HCL 2 MG/2ML VIAL ONE (12:07)
[2020-05-04] MEDS ORDERED: FENTANYL PF 250MCG/5ML AMPUL ONE (12:08)
[2020-05-04] MEDS ORDERED: ROCURONIUM BROMIDE 50 MG/5 ML ONE (12:08)
[2020-05-04] MEDS ORDERED: FAMOTIDINE/PF INJ 20 MG/2 ML VIAL IV ONE (12:08)
[2020-05-04] MEDS ORDERED: DEXAMETHASONE SOD PHOSPHATE 4 MG/ML VIAL ONE (12:09)
[2020-05-04] MEDS ORDERED: BUPIVACAINE MPF 0.5% W/EPI INJ 30 ML VIAL ONE (12:15)
[2020-05-04] MEDS ORDERED: LIDOCAINE HCL/MPF 1% 30 ML VIAL IJ ONE (12:15)
[2020-05-04] MEDS ORDERED: CLINDAMYCIN 900 MG/6 ML VIAL ONE (12:42)
[2020-05-04] MEDS: CLINDAMYCIN 600 MG in IV D5W 50 ML IV SCH ×2 (13:00→21:06)
[2020-05-04 14:40] VITALS: BP 129/78
--- NOTE | 2020-05-04 14:40 | NUR ---
RN NOTES PATIENT BACK FROM SURGERY AT THIS TIME, AWAKE, ON O2-2LNC, REFUSED PAIN, DRESSING INTACT, ON TRESSA. V/S TAKEN BP 129/78, P-104, R-18, T-97.8, O2-2LNC. PATIENT REFUSED PAIN AT THIS TIME. NO ACUTE RESPIRATORY DISTRESS. MD ORDER TAKEN AND CARRIED OUT. WILL CONTINUED MONITORING.
[2020-05-04 16:00] VITALS: BP 120/66
[2020-05-04] MEDS: IV D5/0.45 NACL 1,000 ML IV PRN (18:00)
[2020-05-04] MEDS: HYDROMORPHONE 1 MG/1 ML DISP.SYRIN IV PRN (18:10)
--- NOTE | 2020-05-04 18:11 | NUR ---
RN NOTES ADMINISTERED DILAUDID 0.5 MG/ML IV PUSH, AND ZOFRAN 4 MG/ML IV PUSH FOR NAUSEA. V/S TAKEN BP 120/66, P-110, R-18. TRESSA DRAINAGE INTACT, SMALL BLEEDING ON UMBICAL AREA. APPLIED ICE PACK NEXT TO THE BED, INFUSING D51/2 NS AT 75 ML/HR ON RIGHT UA INTACT. CALL LIGHT WITHIN TO REACH. CONTINUED MONITORING. ENDORSED ONCOMING NURSE FOLLOW PLAN OF CARE.
[2020-05-04 20:00] VITALS: BP 120/65
--- NOTE | 2020-05-04 20:25 | NUR ---
MS/TELE/RN DURING INITIAL ASSESSMENT, PATIENT WAS ON BED AWAKE, ALERT, ORIENTED, WITH TOLERABLE PAIN LEVEL OF 3/10, NO DISTRESS NOTED, CALL LIGHT IN REACH. WILL MONITOR.
[2020-05-05] MEDS: CLINDAMYCIN 600 MG in IV D5W 50 ML IV SCH ×2 (04:46→14:41)
--- NOTE | 2020-05-05 06:39 | NUR ---
MS/TELE/RN PATIENT IS AWAKE AT THIS TIME, COMFORTABLE, NO DISTRESS NOTED, CALL LIGHT IN REACH, TRESSA DRAIN OUTPUT = 30 MLS SEROUS SANGUINEOUS IN COLOR. ALL NEEDS ATTENDED AT THIS TIME, WILL CONTINUE TO MONITOR.
[2020-05-05 07:20] LABS: BASOPHILS % (AUTO) 0.4 % (0.0-2.0); EOSINOPHILS % (AUTO) 0.3 % (0.0-6.0); HEMATOCRIT 36 % (33-45); HEMOGLOBIN 11.8 g/dL (11.5-14.8); LYMPHOCYTES # (AUTO) 1.4 /CMM (0.8-4.8); LYMPHOCYTES % (AUTO) 12.2 % (20.0-44.0); MEAN CORPUSCULAR HGB CONC 33 g/dl (31.0-36.0); MEAN CORPUSCULAR VOLUME 85 fL (82-100); MONOCYTES # (AUTO) 1.1 /CMM (0.1-1.30); MONOCYTES % (AUTO) 9.7 % (2.0-12.0); NEUTROPHILS % (AUTO) 77.4 % (43.0-81.0); PLATELET COUNT (AUTO) 353 /CMM (150-450); RED BLOOD CELL COUNT(AUTO) 4.26 MIL/uL (4.0-5.2); WHITE BLOOD COUNT (AUTO) 11.7 K/uL (4.3-11.0)
[2020-05-05] MEDS: PANTOPRAZOLE 40 MG TABLET.DR PO SCH (07:38)
[2020-05-05 07:41] LABS: ALBUMIN 2.9 g/dL (3.4-5.0); BILIRUBIN,TOTAL 0.4 mg/dL (0.2-1.0); CREATININE 0.6 mg/dL (0.6-1.3); POTASSIUM 3.4 mmol/L (3.5-5.1); TOTAL PROTEIN, SERUM 6.7 g/dL (6.4-8.2)
[2020-05-05] MEDS: KETOROLAC TROMETHAMINE INJ 30 MG/ML VIAL IV PRN ×2 (07:46→17:52)
[2020-05-05 08:13] VITALS: BP 117/70
[2020-05-05] MEDS: METHIMAZOLE (5MG) 5 MG TABLET PO SCH (08:46)
[2020-05-05] MEDS: IV D5/0.45 NACL 1,000 ML IV PRN (09:09)
[2020-05-05] MEDS ORDERED: POTASSIUM CHLORIDE 20 MEQ POWDER PACKET PO SCH (10:00)
[2020-05-05 16:07] VITALS: BP 108/71
--- NOTE | 2020-05-05 17:54 | NUR ---
RN NOTE THE PATIENT IS ALERT AND ORIENTED X4. PROVIDED DISCHARGE EDUCATION AND THE PATIENT VERBALIZED UNDERSTANDING. THE PATIENT GOT PICKED UP BY HIS . THE PATIENT LEFT THE HOSPITAL IN STABLE CONDITION.
== END 2020-05-05 17:30 | disposition home or self-care (01) | DRG 419 ==
LOC: ER 03:02 → MED 06:55
PROVIDERS: ADMIT Nurse Practitioner Acute Care; ATTEND Legal Medicine
PROC: 0FT44ZZ Resection of Gallbladder, Percutaneous Endoscopic Approach (ICD-10-PCS; principal; 2020-05-04)
PROC: 0FB04ZX Excision of Liver, Percutaneous Endoscopic Approach, Diagnostic (ICD-10-PCS; 2020-05-04)
DX: K80.00 Calculus of gallbladder with acute cholecystitis without obstruction (principal); K29.70 Gastritis, unspecified, without bleeding; E87.6 Hypokalemia; E05.90 Thyrotoxicosis, unspecified without thyrotoxic crisis or storm; D72.829 Elevated white blood cell count, unspecified; E66.9 Obesity, unspecified; Z88.0 Allergy status to penicillin; R73.9 Hyperglycemia, unspecified
CPT/HCPCS: 36415; 71045-TC; 76705-TC; 78226; 80048-TC; 80053-TC; 80061-TC; 80076-TC; 81000-TC; 82150-TC; 83690-TC; 83735-TC; 84100-TC; 84484-TC; 84703-TC; 85025-TC; 85610-TC; 85730-TC; 86850-TC; 87081-TC; A4216; A6403; A9537; C9803-CS; G0378; J1100; J1170; J1200; J1885; J1956; J2250; J2270; J2405; J2543; J2704; J2765; J3010; J3480; J3490; J7030; J7060; Q0162

== ENCOUNTER 2020-07-22 08:21 | Outpatient (CLI) | payer BC, OTHER ==
[~2020-07-22 08:21] MED LIST changes: +ASCO60LO9 PO; +METH10TA80 PO; +ZINC10LO5 PO
[2020-07-22 09:32] LABS: BASOPHILS # (AUTO) 0.1 /CMM (0.0-0.2); BASOPHILS % (AUTO) 0.7 % (0.0-2.0); EOSINOPHILS % (AUTO) 2.6 % (0.0-6.0); HEMATOCRIT 44 % (33-45); HEMOGLOBIN 14.4 g/dL (11.5-14.8); LYMPHOCYTES # (AUTO) 2.4 /CMM (0.8-4.8); LYMPHOCYTES % (AUTO) 29.1 % (20.0-44.0); MEAN CORPUSCULAR HGB CONC 33 g/dl (31.0-36.0); MEAN CORPUSCULAR VOLUME 86 fL (82-100); MONOCYTES # (AUTO) 0.5 /CMM (0.1-1.30); MONOCYTES % (AUTO) 6.2 % (2.0-12.0); NEUTROPHILS # (AUTO) 5.1 /CMM (1.8-8.9); NEUTROPHILS % (AUTO) 61.4 % (43.0-81.0); PLATELET COUNT (AUTO) 440 /CMM (150-450); RED BLOOD CELL COUNT(AUTO) 5.13 MIL/uL (4.0-5.2); WHITE BLOOD COUNT (AUTO) 8.4 K/uL (4.3-11.0)
[2020-07-22 09:48] LABS: BILIRUBIN,URINE NEGATIVE (NEGATIVE); COLOR,URINE YELLOW (YELLOW); LEUKOCYTE ESTERASE ,URINE NEGATIVE (NEGATIVE); NITRITE, URINE NEGATIVE (NEGATIVE); PH,URINE 6.5 (5.0-8.0); PROTEIN,URINE NEGATIVE (NEGATIVE); UGLUCOSE NEGATIVE (NEGATIVE); UROBILINOGEN,URINE 0.2 EU/dL (0.2)
[2020-07-22 10:06] LABS: ALBUMIN 4.1 g/dL (3.4-5.0); BILIRUBIN,TOTAL 0.5 mg/dL (0.2-1.0); CALCIUM, SERUM 8.9 mg/dL (8.5-10.1); CREATININE 0.7 mg/dL (0.6-1.3); POTASSIUM 3.7 mmol/L (3.5-5.1); TOTAL PROTEIN, SERUM 8.5 g/dL (6.4-8.2)
[2020-07-22 10:09] LABS: FREE T4 (FREE THYROXINE) 0.73 ng/dL (0.76-1.46); THYROID STIMULATING HORMONE 1.732 uIU/mL (0.358-3.74)
[2020-07-23 08:07] LABS: FOLIC ACID 17.4 ng/mL (>3.0)
== END 2020-07-22 23:59 | disposition home or self-care (01) ==
LOC: CT 08:21
PROVIDERS: ATTEND Legal Medicine
DX: I10 Essential (primary) hypertension (principal); E11.9 Type 2 diabetes mellitus without complications; E03.9 Hypothyroidism, unspecified; E78.00 Pure hypercholesterolemia, unspecified; D64.9 Anemia, unspecified; R51.9 Headache, unspecified; M50.222 Other cervical disc displacement at C5-C6 level; M47.812 Spondylosis without myelopathy or radiculopathy, cervical region; M48.02 Spinal stenosis, cervical region; M51.34 Other intervertebral disc degeneration, thoracic region; M25.78 Osteophyte, vertebrae; E04.1 Nontoxic single thyroid nodule; Z00.00 Encounter for general adult medical examination without abnormal findings
CPT/HCPCS: 36415; 70450-TC; 72125-TC; 80053-TC; 80061-TC; 82306; 82728-TC; 83540-TC; 84439-TC; 84443-TC; 85025-TC

== ENCOUNTER 2020-11-08 10:46 | Emergency (ER) | payer BC, OTHER ==
[~2020-11-08] VITALS: Ht 157.5 cm; Wt 63.5 kg
--- NOTE | 2020-11-08 10:55 | NUR ---
The patient bibs for c/o generalized rash noticed yesterday, on bactrim started monday. The patient is alert and oriented x4. In room air and denies SOB. Respiration regular and unlabored. The patient denies pain. Will continue to monitor the patient.
[2020-11-08] MEDS ORDERED: diphenhydrAMINE HCL 50 MG/ML VIAL ONE (11:21)
[2020-11-08] MEDS ORDERED: methylPREDNISolone SOD SUCC 125 MG/2ML VIAL ONE (11:21)
[2020-11-08] MEDS ORDERED: methylPREDNISolone SOD SUCC 125 MG/2ML VIAL IM ONE (11:30)
[2020-11-08] MEDS ORDERED: diphenhydrAMINE HCL 50 MG/ML VIAL IM ONE (11:30)
[2020-11-08] MEDS ORDERED: METH4TAB3 PO (12:03)
[2020-11-08] MEDS ORDERED: DIPH25CA83 PO (12:03)
--- NOTE | 2020-11-08 12:29 | NUR ---
Patient discharged to home in stable condition. Written and verbal after care instructions given. Patient verbalizes understanding of instruction. Pt ambulatory with a steady gait
[2020-11-08 12:30] VITALS: BP 134/79
== END 2020-11-08 12:31 | disposition home or self-care (01) ==
LOC: ER 10:52
DX: L50.8 Other urticaria (principal); Z88.0 Allergy status to penicillin; Z88.1 Allergy status to other antibiotic agents; Z88.8 Allergy status to other drugs, medicaments and biological substances; Z88.6 Allergy status to analgesic agent; Z79.899 Other long term (current) drug therapy
CPT/HCPCS: 96372 ×2; 99284; J1200; J2930